=== PATIENT | female | born 1945 | race Caucasian/White ===

== ENCOUNTER 2020-05-27 14:30 | Day surgery (SDC) | payer MEDICARE | END 2020-05-27 16:06 | disposition home or self-care (01) | LOC: WOUND CARE 14:30 | PROVIDERS: ATTEND Nurse Practitioner | DX: T81.89XA Other complications of procedures, not elsewhere classified, initial encounter (principal); L98.492 Non-pressure chronic ulcer of skin of other sites with fat layer exposed; E78.5 Hyperlipidemia, unspecified; I10 Essential (primary) hypertension; I25.2 Old myocardial infarction; M19.90 Unspecified osteoarthritis, unspecified site; M10.9 Gout, unspecified; I25.10 Atherosclerotic heart disease of native coronary artery without angina pectoris; E66.9 Obesity, unspecified; I27.9 Pulmonary heart disease, unspecified; Z87.891 Personal history of nicotine dependence; Z68.27 Body mass index [BMI] 27.0-27.9, adult; Y83.8 Other surgical procedures as the cause of abnormal reaction of the patient, or of later complication, without mention of misadventure at the time of the procedure; Y92.238 Other place in hospital as the place of occurrence of the external cause | CPT/HCPCS: 97597; G0463 ==

== ENCOUNTER 2020-06-02 12:05 | Day surgery (SDC) | payer MEDICARE ==
[2020-06-02] MEDS ORDERED: LIDOcaine 2% 5ml jelly ONE (12:17)
== END 2020-06-02 13:58 | disposition home or self-care (01) ==
LOC: WOUND CARE 12:05
PROVIDERS: ATTEND Nurse Practitioner
DX: T81.89XD Other complications of procedures, not elsewhere classified, subsequent encounter (principal); L98.492 Non-pressure chronic ulcer of skin of other sites with fat layer exposed; E78.5 Hyperlipidemia, unspecified; I10 Essential (primary) hypertension; I25.2 Old myocardial infarction; M19.90 Unspecified osteoarthritis, unspecified site; M10.9 Gout, unspecified; I25.10 Atherosclerotic heart disease of native coronary artery without angina pectoris; E66.9 Obesity, unspecified; I27.9 Pulmonary heart disease, unspecified; Z87.891 Personal history of nicotine dependence; Z68.27 Body mass index [BMI] 27.0-27.9, adult; Y83.8 Other surgical procedures as the cause of abnormal reaction of the patient, or of later complication, without mention of misadventure at the time of the procedure
CPT/HCPCS: 97597

== ENCOUNTER 2020-06-18 12:00 | Outpatient (CLI) | payer MEDICARE | END 2020-06-18 13:05 | disposition home or self-care (01) | LOC: EDSTATUS 12:00 → WOUND CARE 12:00 | PROVIDERS: ATTEND Nurse Practitioner | DX: T81.89XD Other complications of procedures, not elsewhere classified, subsequent encounter (principal); L98.492 Non-pressure chronic ulcer of skin of other sites with fat layer exposed; E78.5 Hyperlipidemia, unspecified; I10 Essential (primary) hypertension; I25.2 Old myocardial infarction; M19.90 Unspecified osteoarthritis, unspecified site; M10.9 Gout, unspecified; I25.10 Atherosclerotic heart disease of native coronary artery without angina pectoris; E66.9 Obesity, unspecified; I27.9 Pulmonary heart disease, unspecified; Z87.891 Personal history of nicotine dependence; Z68.27 Body mass index [BMI] 27.0-27.9, adult; Y83.8 Other surgical procedures as the cause of abnormal reaction of the patient, or of later complication, without mention of misadventure at the time of the procedure | CPT/HCPCS: G0463 ==

== ENCOUNTER 2021-01-27 06:08 | Inpatient (IN) | payer MEDICARE, OTHER ==
[2021-01-22 11:05] LABS: CLARITY,URINE CLEAR (Clear); COLOR,URINE STRAW (Yellow); GLUCOSE, URINE NEGATIVE (Neg); KETONES,URINE NEGATIVE (Neg); LEUKOCYTE ESTERASE ,URINE NEGATIVE (Neg); NITRITES, URINE NEGATIVE (Neg); OCCULT BLOOD,URINE NEGATIVE (Neg); PROTEIN,URINE NEGATIVE (Neg); UROBILINOGEN,URINE 0.2 E.U/dL (0.2-1.0)
[2021-01-22 11:05] LABS: BASOPHILS # (AUTO) 0.1 X10'3 (0-0.2); BASOPHILS % (AUTO) 1.1 % (0-1); EOSINOPHILS # (AUTO) 0.4 X10'3 (0-0.9); EOSINOPHILS % (AUTO) 6.9 % (0-6); LYMPHOCYTES # (AUTO) 1.9 X10'3 (1.1-4.8); LYMPHOCYTES % (AUTO) 36.8 % (21-51); MEAN CORPUSCULAR HEMOGLOBIN 32.6 PG (27.0-31.0); MEAN CORPUSCULAR HGB CONC 33.2 g/dL (33.0-36.5); MEAN CORPUSCULAR VOLUME 98.1 FL (78-98); MEAN PLATELET VOLUME 8.5 FL (7.4-10.4); MONOCYTES # (AUTO) 0.6 X10'3 (0-0.9); MONOCYTES % (AUTO) 12.4 % (2-12); NEUTROPHILS # (AUTO) 2.2 X10'3 (1.8-7.7); NEUTROPHILS % (AUTO) 42.8 % (42-75); PRE OP HEMATOCRIT 38.2 % (35.0-45.0); PRE OP HEMOGLOBIN 12.7 g/dL (12.0-16.0); PRE OP PLATELET COUNT 212 X10'3 (140-440); RED CELL DISTRIBUTION WIDTH 13.4 % (11.5-14.5)
[2021-01-22 11:09] LABS: UA COLLECTION TYPE CLN CATCH MIDSTREAM
[2021-01-22 11:15] LABS: PRE OP INR 1.1 INR
[2021-01-22 11:31] LABS: ALBUMIN 3.9 G/DL (3.4-5.0); ALBUMIN/GLOBULIN RATIO 1.2 (1.1-1.5); ALKALINE PHOSPHATASE 59 IU/L (46-116); BLOOD UREA NITROGEN 27 MG/DL (7-18); BUN/CREATININE RATIO 22.5 (6.6-38.0); CALCIUM 9.4 MG/DL (8.5-10.1); CHLORIDE 107 MMOL/L (99-107); PRE OP ALT 20 U/L (30-65); PRE OP ANION GAP 6 (8-16); PRE OP AST 18 U/L (10-37); PRE OP BILIRUB, TOTAL 0.4 MG/DL (0.0-1.0); PRE OP GLUCOSE 88 MG/DL (70-104); PRE OP POTASSIUM 4.4 MMOL/L (3.4-5.1); PRE OP SODIUM 145 MMOL/L (135-145); TOTAL CARBON DIOXIDE 31.8 MMOL/L (24-32); TOTAL PROTEIN 7.1 G/DL (6.4-8.2); eGFR 44 ML/MIN
[~2021-01-27] VITALS: Ht 167.6 cm; Wt 83.9 kg
[2021-01-27] VITALS (18 sets, daily range): BP systolic 133–211; BP diastolic 60–96
[~2021-01-27 06:08] MED LIST: AMIO200T61 PO; APIX5TAB3 PO; ASPI81TA52 PO; ATOR20TA66 PO; CARV3.1246 PO; CHOL20004 PO; DOCU-22 PO; DOCUMENT DATE & TIME OF BETA-BLOCKER PO ONE; ESTR42.53 VG; ESTRACE CREAM TOP; ESZO3TAB44 PO; LEVO50TA8 PO; MATURE MULTI VITAMIN PO; RAW PROBIOTICS PO; TRAM50TA2 PO; VITAMIN D PO; [UNRECOGNIZED DRUG - OTHER] PO; ceFOXitin 2GM-NS 100mL ADDvant 100 ML IV ONE; famotidine 20mg tablet PO ONE; ringers solution, lacted 1,000 ML IV SCH
[2021-01-27] MEDS ORDERED: LIDOcaine 1% (10mg/ml) 2ml vial ONE (07:50)
[2021-01-27] MEDS ORDERED: ondansetron/PF 4mg/2ml inj IV PRN ×2 (07:55→11:10)
[2021-01-27] MEDS ORDERED: ringers solution, lacted 1,000 ML IV SCH (07:55)
[2021-01-27] MEDS ORDERED: morphine 4 MG/ML inj SYRINge IV PRN (07:55)
[2021-01-27] MEDS ORDERED: proCHLORperazine 10 MG/2 ml inj IV PRN (07:55)
[2021-01-27] MEDS ORDERED: morphine 2 MG/ML inj. syringe IV PRN (07:55)
[2021-01-27] MEDS ORDERED: meperidine/PF 25mg/ml syringe IV PRN ×3 (07:55)
[2021-01-27] MEDS ORDERED: midazolam 1 mg/ML 2ml injection ONE (08:15)
[2021-01-27] MEDS ORDERED: fentaNYL /PF 50mcg/ml 5ml ampule ONE (08:16)
[2021-01-27] MEDS ORDERED: dexamethasone sod phosphate 10mg/ml inj ONE (08:22)
[2021-01-27] MEDS ORDERED: glycopyrrolate 0.2mg/ml inj ONE (08:22)
[2021-01-27] MEDS ORDERED: sevoflurane 250ml liquid IH ONE (08:22)
[2021-01-27] MEDS ORDERED: neostigmine methylsulfate 1 MG/ML 10ml vial ONE (08:22)
[2021-01-27] MEDS ORDERED: LIDOcaine 2% (20mg/ml) 5ml vial ONE (08:40)
[2021-01-27] MEDS ORDERED: propofol inj 20 ML IV ONE (08:40)
[2021-01-27] MEDS ORDERED: rocuronium 10mg/ml inj IV ONE (08:40)
[2021-01-27] MEDS ORDERED: ondansetron/PF 4mg/2ml inj ONE (08:42)
[2021-01-27] MEDS ORDERED: BUPIVAcaine 0.5% inj/PF 30 ML ONE (10:30)
[2021-01-27] MEDS ORDERED: BUPIVACAINE liposomal/PF 13.3 MG/ML vial IM ONE ×2 (10:31→10:39)
[2021-01-27] MEDS ORDERED: acetaminophen 1,000mg/100ml IV 100 ML IV ONE (10:42)
[2021-01-27] MEDS ORDERED: CADD PCA waste documentation MC PRN (11:10)
[2021-01-27] MEDS ORDERED: HYDROmorphone/NS 1 mg/ml CADD 50 ML IV SCH (11:10)
[2021-01-27] MEDS ORDERED: naloxone 0.4 mg/ml inj IV PRN (11:10)
[2021-01-27] MEDS ORDERED: HYDROmorph./NS 0.2 mg/ml CADD 100 ML IV SCH (11:18)
--- NOTE | 2021-01-27 11:35 | NUR ---
Received from OR via gurney, accompanied by Anesthesiologist and report given by Anesthesiologist. PATIENT WAKING UP, NO S/S OF PAIN, V/S WNL, SCD ON, 20G TO LUE,WV TO ABDOMEN CDI, NO LEAKS DETECTED. 125 CONTINOUS SUCTION., F/C DRAINING CLEAR YELLOW URINE
--- NOTE | 2021-01-27 11:58 | NUR ---
Patient in room PAS IN 900. I have received report from JULIO Castellon and had the opportunity to ask questions . Pt to be held in recovery untill Vinicio CARTAGENAD available aprox 30 min.
[2021-01-27] MEDS: HYDROmorphone/NS 1 mg/ml CADD 50 ML IV SCH ×7 (12:08→23:00)
--- NOTE | 2021-01-27 12:30 | NUR ---
Pt arrived via bed from recovery, pt very painful painful. Instructed pt and spouse on Cadd use. Spouse verbalizes understanding of not push cadd button for his to avoid complications. Bed low, call light in reach, VSS though BP slightly elevated. will monitor pain management and BP.
--- NOTE | 2021-01-27 12:35 | NUR ---
PATIENT AWAKE AND ORIENTED, C/O PAIN-STITCHING MACHINE SETTER STARTED AND ENCOURAGED TO BE USED AND BOLUS DOSE GIVEN MULTIPLE TIMES DUE TO C/O PAIN WHICH IS INTERMITTENT, V/S WNL, SCD ON, 20G TO LUE,WV TO ABDOMEN CDI, NO LEAKS DETECTED. 125 CONTINOUS SUCTION., F/C DRAINING CLEAR YELLOW URINE. PATIENT TAKEN TO SURGICAL WITH ALL BELONGINGS AND REPORT GIVEN TO RN WHO HAS TAKEN OVER PATIENT CARE.
[2021-01-27] MEDS: potassium CL 20mEq in D5-1/2NS 1,000 ML IV SCH ×2 (12:51→21:07)
--- NOTE | 2021-01-27 14:45 | NUR ---
Paged Dr Coronado as pt remains Hypertensive 211/ and very painful. Increased Cadd to 0.3 per order. Pt reports she took all of her BP meds pre-op. Will continue to try to reach Surgeon or anesthesia.
[2021-01-27] MEDS ORDERED: ketorolac tromethamine 15mg/ml inj. IV ONE (14:55)
[2021-01-27] MEDS ORDERED: LORazepam 2 mg/ml vial IV ONE (14:55)
[2021-01-27] MEDS: piperacillin/tazo 3.375gm/50ml 50 ML IV SCH (16:27)
[2021-01-27] MEDS ORDERED: ESTRACE TOP SCH (18:05)
[2021-01-27] MEDS ORDERED: traMADol 50MG tablet PO PRN (18:05)
--- NOTE | 2021-01-27 18:36 | NUR ---
Problems reprioritized. Patient report given, questions answered & plan of care reviewed with JULIO Lim.
--- NOTE | 2021-01-27 19:07 | NUR ---
Patient in room [facility] 347. I have received report from Kirti KIM and had the opportunity to ask questions and assume patient care.
[2021-01-27] MEDS: docusate sod 100mg capsule PO SCH (20:05)
[2021-01-27] MEDS: carVEDilol 3.125mg tablet PO SCH (20:05)
[2021-01-27] MEDS: atorvastatin 20mg tablet PO SCH (20:06)
--- NOTE | 2021-01-27 22:56 | NUR ---
Student documentation: I have reviewed all interventions, assessments performed and documented by Aleida Barbosa. Student Medication Administration: For this medication-pass time frame, all medication were reviewed, dispensed, administered and documented per hospital policy by Aleida Barbosa.
[2021-01-28] MEDS: HYDROmorphone/NS 1 mg/ml CADD 50 ML IV SCH ×12 (01:00→23:00)
[2021-01-28] MEDS: piperacillin/tazo 3.375gm/50ml 50 ML IV SCH ×3 (01:10→16:33)
[2021-01-28] MEDS: potassium CL 20mEq in D5-1/2NS 1,000 ML IV SCH ×3 (04:48→20:23)
--- NOTE | 2021-01-28 06:21 | NUR ---
Problems reprioritized. Patient report given, questions answered & plan of care reviewed with Kirti KIM.
[2021-01-28 08:00] VITALS: BP 163/61
[2021-01-28] MEDS ORDERED: [UNRECOGNIZED DRUG - OTHER] PO SCH (08:00)
[2021-01-28] MEDS ORDERED: VITAMIN D 2000 UNIT PO SCH (08:00)
[2021-01-28] MEDS ORDERED: RAW PROBIOTICS PO SCH (08:00)
[2021-01-28] MEDS: docusate sod 100mg capsule PO SCH ×2 (08:42→20:24)
[2021-01-28] MEDS: cholecalciferol (vitamin D3) 1,000 unit (25mcg) tablet PO SCH (08:42)
[2021-01-28] MEDS: levoTHYROXINE 25mcg tablet PO SCH (08:42)
[2021-01-28] MEDS: aspirin 81mg tablet.DR PO SCH (08:42)
[2021-01-28] MEDS: amiodarone 200mg tablet PO SCH (08:42)
[2021-01-28] MEDS: multivitamins, therapeutics tablet PO SCH (08:42)
[2021-01-28] MEDS: carVEDilol 3.125mg tablet PO SCH ×2 (08:43→20:23)
[2021-01-28 12:00] VITALS: BP 136/59
[2021-01-28] MEDS ORDERED: ondansetron 4mg rapidly disintigrating tab PO PRN (15:40)
--- NOTE | 2021-01-28 18:38 | NUR ---
Problems reprioritized. Patient report given, questions answered & plan of care reviewed with JULIO De Guzman.
[2021-01-28 19:00] VITALS: BP 146/66
[2021-01-28] MEDS: estrogens, conjug. vaginal cream 45gm tube VG SCH (20:23)
[2021-01-28] MEDS: enoxaparin 40mg/0.4ml syringe SUBCUT SCH (20:23)
[2021-01-28] MEDS: atorvastatin 20mg tablet PO SCH (20:24)
[2021-01-28] MEDS: ketorolac tromethamine 15mg/ml inj. IV PRN (22:23)
[2021-01-29] VITALS: BP 153/74
[2021-01-29] MEDS: piperacillin/tazo 3.375gm/50ml 50 ML IV SCH ×4 (00:22→23:37)
[2021-01-29] MEDS: HYDROmorphone/NS 1 mg/ml CADD 50 ML IV SCH ×12 (01:00→23:00)
[2021-01-29] MEDS: potassium CL 20mEq in D5-1/2NS 1,000 ML IV SCH ×3 (03:54→19:23)
[2021-01-29] MEDS: amiodarone 200mg tablet PO SCH (07:45)
[2021-01-29] MEDS: levoTHYROXINE 25mcg tablet PO SCH (07:45)
[2021-01-29] MEDS: cholecalciferol (vitamin D3) 1,000 unit (25mcg) tablet PO SCH (07:45)
[2021-01-29] MEDS: aspirin 81mg tablet.DR PO SCH (07:45)
[2021-01-29] MEDS: multivitamins, therapeutics tablet PO SCH (07:45)
[2021-01-29] MEDS: docusate sod 100mg capsule PO SCH ×2 (07:45→19:21)
[2021-01-29] MEDS: carVEDilol 3.125mg tablet PO SCH ×2 (07:45→19:21)
[2021-01-29 07:47] VITALS: BP 168/77
[2021-01-29] MEDS: ketorolac tromethamine 15mg/ml inj. IV PRN (08:47)
[2021-01-29 08:58] LABS: BASOPHILS % (AUTO) 0.4 % (0-1); EOSINOPHILS # (AUTO) 0.2 X10'3 (0-0.9); EOSINOPHILS % (AUTO) 2.8 % (0-6); HEMATOCRIT 33.9 % (35.0-45.0); HEMOGLOBIN 11.3 g/dl (12.0-16.0); LYMPHOCYTES # (AUTO) 1.2 X10'3 (1.1-4.8); LYMPHOCYTES % (AUTO) 15.1 % (21-51); MEAN CORPUSCULAR HEMOGLOBIN 32.7 PG (27.0-31.0); MEAN CORPUSCULAR HGB CONC 33.4 g/dL (33.0-36.5); MEAN PLATELET VOLUME 8.3 FL (7.4-10.4); MONOCYTES # (AUTO) 0.7 X10'3 (0-0.9); MONOCYTES % (AUTO) 8.9 % (2-12); NEUTROPHILS # (AUTO) 5.6 X10'3 (1.8-7.7); NEUTROPHILS % (AUTO) 72.8 % (42-75); PLATELET COUNT 165 X10'3 (140-440); RED BLOOD COUNT 3.46 X10'6 (4.20-5.60); RED CELL DISTRIBUTION WIDTH 13.7 % (11.5-14.5); WHITE BLOOD COUNT 7.7 X10'3 (4.5-11.0)
[2021-01-29 09:08] LABS: ALANINE AMINOTRANSFERASE 45 U/L (12-78); ALKALINE PHOSPHATASE 67 IU/L (46-116); ANION GAP 7 (8-16); ASPARTATE AMINO TRANSFERASE 47 U/L (10-37); BILIRUBIN,TOTAL 0.7 MG/DL (0.1-1.0); BLOOD UREA NITROGEN 13 MG/DL (7-18); BUN/CREATININE RATIO 10.2 (6.6-38.0); CALCIUM 8.4 MG/DL (8.5-10.1); CHLORIDE 106 MMOL/L (99-107); CREATININE 1.28 MG/DL (0.40-0.90); GLUCOSE 127 MG/DL (70-104); POTASSIUM 4.6 MMOL/L (3.5-5.1); SODIUM 140 MMOL/L (135-145); TOTAL CARBON DIOXIDE 26.6 MMOL/L (24-32); TOTAL PROTEIN 5.9 G/DL (6.4-8.2); eGFR 40 ML/MIN
[2021-01-29 11:00] VITALS: BP 102/57
[2021-01-29 18:00] VITALS: BP 163/76
[2021-01-29] MEDS: lactobacillus rhamnosus 10,000 MMU CELLS/CAPSULE PO SCH (19:21)
[2021-01-29] MEDS: atorvastatin 20mg tablet PO SCH (19:21)
[2021-01-29] MEDS: enoxaparin 40mg/0.4ml syringe SUBCUT SCH (19:21)
[2021-01-30] VITALS: BP 144/67
[2021-01-30] MEDS: HYDROmorphone/NS 1 mg/ml CADD 50 ML IV SCH ×12 (01:00→23:00)
[2021-01-30] MEDS: potassium CL 20mEq in D5-1/2NS 1,000 ML IV SCH ×2 (03:04→16:13)
--- NOTE | 2021-01-30 06:53 | NUR ---
Patient in room [facility] 347. I have received report from Gege KIM and had the opportunity to ask questions and assume patient care.
[2021-01-30 07:01] VITALS: BP 173/73
[2021-01-30] MEDS: lactobacillus rhamnosus 10,000 MMU CELLS/CAPSULE PO SCH ×2 (07:14→19:44)
[2021-01-30] MEDS: levoTHYROXINE 25mcg tablet PO SCH (07:14)
[2021-01-30] MEDS: piperacillin/tazo 3.375gm/50ml 50 ML IV SCH ×2 (07:14→16:09)
[2021-01-30] MEDS: docusate sod 100mg capsule PO SCH ×2 (07:14→19:44)
[2021-01-30] MEDS: multivitamins, therapeutics tablet PO SCH (07:15)
[2021-01-30] MEDS: carVEDilol 3.125mg tablet PO SCH ×2 (07:15→19:44)
[2021-01-30] MEDS: aspirin 81mg tablet.DR PO SCH (07:15)
[2021-01-30] MEDS: cholecalciferol (vitamin D3) 1,000 unit (25mcg) tablet PO SCH (07:15)
[2021-01-30] MEDS: amiodarone 200mg tablet PO SCH (07:15)
[2021-01-30] MEDS: apixaban 5mg tablet PO SCH ×2 (08:54→19:44)
[2021-01-30 11:00] VITALS: BP 130/57
--- NOTE | 2021-01-30 18:57 | NUR ---
Patient in room [facility] 347. I have received report from PRANAV KIM and PATIENT READY FOR DISCHARGE, DISCHARGE INSTRUCTIONS GIVEN BY SHERRI NURSE PRANAV KIM, DISCHARGE PAPER SIGNED AND DAUGHTER HERE TO PICK HER UP, LEFT IN A WHEEL CHAIR WITH STAFF TO THE FRONT DOOR. Addendum: 01/30/21 at 2108 by Rosa Pierre RN WRONG ENTRY, WRONG PATIENT.
--- NOTE | 2021-01-30 18:58 | NUR ---
Patient in room [facility] 347. I have received report from ОЛЕГ KIM and had the opportunity to ask questions and assume patient care.
[2021-01-30 19:00] VITALS: BP 173/84
[2021-01-30] MEDS: atorvastatin 20mg tablet PO SCH (19:53)
[2021-01-30] MEDS: estrogens, conjug. vaginal cream 45gm tube VG SCH ×2 (19:54→19:57)
[2021-01-30] MEDS: micafungin inj 100 MG in normal saline 100ml IV soln 100 ML IV SCH (20:23)
[2021-01-30] MEDS: zolpidem 5mg tablet PO PRN (22:18)
[2021-01-31] VITALS: BP 164/62
[2021-01-31] MEDS: piperacillin/tazo 3.375gm/50ml 50 ML IV SCH ×3 (00:29→15:59)
[2021-01-31] MEDS: HYDROmorphone/NS 1 mg/ml CADD 50 ML IV SCH ×3 (01:00→05:00)
--- NOTE | 2021-01-31 06:09 | NUR ---
Problems reprioritized. Patient report given, questions answered & plan of care reviewed with ОЛЕГ KIM.
--- NOTE | 2021-01-31 06:19 | NUR ---
Patient in room [facility] 347. I have received report from Maya KIM and had the opportunity to ask questions and assume patient care.
[2021-01-31 07:23] VITALS: BP 165/75
[2021-01-31] MEDS: amiodarone 200mg tablet PO SCH (07:51)
[2021-01-31] MEDS: levoTHYROXINE 25mcg tablet PO SCH (07:51)
[2021-01-31] MEDS: lactobacillus rhamnosus 10,000 MMU CELLS/CAPSULE PO SCH ×2 (07:51→19:57)
[2021-01-31] MEDS: docusate sod 100mg capsule PO SCH ×2 (07:51→19:57)
[2021-01-31] MEDS: cholecalciferol (vitamin D3) 1,000 unit (25mcg) tablet PO SCH (07:51)
[2021-01-31] MEDS: aspirin 81mg tablet.DR PO SCH (07:51)
[2021-01-31] MEDS: multivitamins, therapeutics tablet PO SCH (07:52)
[2021-01-31] MEDS: apixaban 5mg tablet PO SCH ×2 (07:52→19:57)
[2021-01-31] MEDS: carVEDilol 3.125mg tablet PO SCH ×2 (07:52→19:57)
[2021-01-31] MEDS: micafungin inj 100 MG in normal saline 100ml IV soln 100 ML IV SCH (07:54)
[2021-01-31] MEDS: oxyCODONE/APAP 10/325mg tablet PO PRN ×4 (09:05→21:26)
[2021-01-31 11:34] VITALS: BP 137/65
--- NOTE | 2021-01-31 14:57 | NUR ---
Initial: Pt admit s/p Colostomy reversal, open lysis of adhesions, correction of multiple abdominal hernias, and drainage of retroperitoneal abscess per MD note. Pt advanced to regular diet yesterday w/ PO mostly 75% avg clear/full liquid meals prior. PO 25-50% recent two meals though LBM 5/12; constipation likely impacting PO. Receiving routine colace per EMR; will send power [employer] for additional bowel assistance. Dietary notified. ROCCO recommends Ant shake BIDLD for wound healing post-op; MD notified. Will continue to monitor for additional protein/kcal needs post-op. Rec: 1. continue regular diet; consider low-residue given recent GI surgery 2. Ant shake BIDLD for wound healing; pending MD verification in EMR 3. routine bowel care 4. weekly wts Addendum: 01/31/21 at [address] Amended: Links added.
[2021-01-31] MEDS: JUVEN Shake w/Arg/Glut/Ca2+Bmb (Juven 19.3gm) pkt 240ml PO SCH (17:30)
[2021-01-31 18:40] VITALS: BP 138/66
[2021-01-31] MEDS: atorvastatin 20mg tablet PO SCH (20:00)
[2021-01-31] MEDS: zolpidem 5mg tablet PO PRN (21:25)
[2021-01-31] MEDS: potassium CL 20mEq in D5-1/2NS 1,000 ML IV SCH (21:30)
[2021-02-01] VITALS: BP 144/56
[2021-02-01] MEDS: oxyCODONE/APAP 10/325mg tablet PO PRN ×5 (02:57→22:01)
--- NOTE | 2021-02-01 06:39 | NUR ---
Patient in room [facility] 347. I have received report from Avinash KIM and had the opportunity to ask questions and assume patient care.
--- NOTE | 2021-02-01 06:41 | NUR ---
Problems reprioritized. Patient report given, questions answered & plan of care reviewed with SANDY. Addendum: 02/01/21 at 0641 by Kolton Vidal RN Amended: Links added.
[2021-02-01 07:00] VITALS: BP 161/77
[2021-02-01] MEDS: cholecalciferol (vitamin D3) 1,000 unit (25mcg) tablet PO SCH (07:21)
[2021-02-01] MEDS: amiodarone 200mg tablet PO SCH (07:21)
[2021-02-01] MEDS: apixaban 5mg tablet PO SCH ×2 (07:21→19:49)
[2021-02-01] MEDS: aspirin 81mg tablet.DR PO SCH (07:21)
[2021-02-01] MEDS: docusate sod 100mg capsule PO SCH ×2 (07:22→19:49)
[2021-02-01] MEDS: lactobacillus rhamnosus 10,000 MMU CELLS/CAPSULE PO SCH ×2 (07:22→19:49)
[2021-02-01] MEDS: levoTHYROXINE 25mcg tablet PO SCH (07:22)
[2021-02-01] MEDS: multivitamins, therapeutics tablet PO SCH (07:22)
[2021-02-01] MEDS: carVEDilol 3.125mg tablet PO SCH ×2 (07:22→19:49)
[2021-02-01] MEDS: piperacillin/tazo 3.375gm/50ml 50 ML IV SCH ×4 (07:23→23:44)
[2021-02-01] MEDS: micafungin inj 100 MG in normal saline 100ml IV soln 100 ML IV SCH (07:23)
[2021-02-01] MEDS: HYDROmorphone inj. 0.5 MG/0.5 ML DISP.SYRIN IV PRN ×2 (09:47→20:26)
[2021-02-01 11:00] VITALS: BP 159/71
[2021-02-01] MEDS: JUVEN Shake w/Arg/Glut/Ca2+Bmb (Juven 19.3gm) pkt 240ml PO SCH ×2 (12:30→17:30)
--- NOTE | 2021-02-01 18:09 | NUR ---
Problems reprioritized. Patient report given, questions answered & plan of care reviewed with Avinash KIM.
[2021-02-01 19:48] VITALS: BP 141/56
[2021-02-01] MEDS: atorvastatin 20mg tablet PO SCH (19:51)
[2021-02-01] MEDS: zolpidem 5mg tablet PO PRN (21:59)
[2021-02-02] VITALS: BP 138/74
[2021-02-02] MEDS: oxyCODONE/APAP 10/325mg tablet PO PRN ×3 (02:38→12:17)
[2021-02-02] MEDS: potassium CL 20mEq in D5-1/2NS 1,000 ML IV SCH (03:25)
--- NOTE | 2021-02-02 06:22 | NUR ---
Problems reprioritized. Patient report given, questions answered & plan of care reviewed with SANDY. Addendum: 02/02/21 at 0622 by Kolton Vidal RN Amended: Links added.
--- NOTE | 2021-02-02 06:33 | NUR ---
Patient in room [facility] 347. I have received report from Avinash KIM and had the opportunity to ask questions and assume patient care.
[2021-02-02 07:00] VITALS: BP 170/72
[2021-02-02] MEDS: levoTHYROXINE 25mcg tablet PO SCH (07:04)
[2021-02-02] MEDS: cholecalciferol (vitamin D3) 1,000 unit (25mcg) tablet PO SCH (07:04)
[2021-02-02] MEDS: aspirin 81mg tablet.DR PO SCH (07:04)
[2021-02-02] MEDS: lactobacillus rhamnosus 10,000 MMU CELLS/CAPSULE PO SCH (07:04)
[2021-02-02] MEDS: multivitamins, therapeutics tablet PO SCH (07:04)
[2021-02-02] MEDS: amiodarone 200mg tablet PO SCH (07:04)
[2021-02-02] MEDS: piperacillin/tazo 3.375gm/50ml 50 ML IV SCH (07:05)
[2021-02-02] MEDS: docusate sod 100mg capsule PO SCH (07:06)
[2021-02-02] MEDS: micafungin inj 100 MG in normal saline 100ml IV soln 100 ML IV SCH (07:06)
[2021-02-02] MEDS: apixaban 5mg tablet PO SCH (07:06)
[2021-02-02] MEDS: carVEDilol 3.125mg tablet PO SCH (07:07)
[2021-02-02 11:00] VITALS: BP 114/51
[2021-02-02] MEDS: JUVEN Shake w/Arg/Glut/Ca2+Bmb (Juven 19.3gm) pkt 240ml PO SCH (12:30)
[2021-02-02] MEDS ORDERED: oxyCODONE/APAP 5-325mg tablet PO ONE (15:20)
[2021-02-02] MEDS: HYDROmorphone inj. 0.5 MG/0.5 ML DISP.SYRIN IV PRN (15:27)
--- NOTE | 2021-02-02 16:30 | NUR ---
Patient's home wound vac was set up and she was educated on how to use. She was educated on worsening symptoms, follow up care at [facility] for infusion, [facility] wound care, and home health services, diet, and medications. IV was removed and canula intact. Patient stated she had all belonging and was taken down by PCT.
--- NOTE | 2021-02-02 16:35 | NUR ---
Wound care pictures were not taken because a wound vac was in place.
--- NOTE | 2021-02-04 13:02 | NUR ---
CASE MANAGEMENT DISCHARGE FOLLOW UP: T/c to pt, no answer, left message requesting callback. Addendum: 02/04/21 at 1359 by Taniya Saenz RN [id number] Received return call from patient. Reports that she is feeling better, wound is tender/itching, improved appetite, had BM; denies CP, SOB, fever/chills, s/sx of infection, bleeding, incontinence. Verbalizes understanding of s/sx requiring further evaluation/emergent assistance. Verbalizes understanding of medications, verbalizes understanding that she needs to go to [facility]'s infusion clinic daily until abx completed. Verbalizes compliance with MD discharge instructions. Verbalizes understanding of the importance in making/keeping follow-up appointments, went to wound care appointment this morning at [facility]'s wound care clinic. Upon inquiry, states that she has not heard from HHS agency, has phone number for [facility] [employer], states that she will give them a call if she does not hear from them. Pt states that she slept well during her hospitalization and that the nurses were really just nice and helpful. Per pt, if she used her call light, someone answered within 2-3 minutes, sometimes sooner, states she was really impressed. States no further questions/concerns at this time.
== END 2021-02-02 16:26 | disposition home health service (06) | DRG 329 ==
LOC: PAS IN 06:08 → UNDOADMIN 06:08 → PAS IN 11:06 → SUR 3N 12:30 → PAS IN 12:30 → SUR 3N 01-29 13:51
PROVIDERS: ADMIT Surgery; ATTEND Surgery
PROC: 0DQN0ZZ Repair Sigmoid Colon, Open Approach (ICD-10-PCS; 2021-01-27)
PROC: 0WQF0ZZ Repair Abdominal Wall, Open Approach (ICD-10-PCS; 2021-01-27)
PROC: 3E0T3BZ Introduction of Anesthetic Agent into Peripheral Nerves and Plexi, Percutaneous Approach (ICD-10-PCS; 2021-01-27)
PROC: 3E0T33Z Introduction of Anti-inflammatory into Peripheral Nerves and Plexi, Percutaneous Approach (ICD-10-PCS; 2021-01-27)
PROC: 0DNW0ZZ Release Peritoneum, Open Approach (ICD-10-PCS; principal; 2021-01-27 08:22)
PROC: 02HV33Z Insertion of Infusion Device into Superior Vena Cava, Percutaneous Approach (ICD-10-PCS; 2021-02-02)
PROC: B548ZZA Ultrasonography of Superior Vena Cava, Guidance (ICD-10-PCS; 2021-02-02)
DX: Z43.3 Encounter for attention to colostomy (principal); K68.19 Other retroperitoneal abscess; N17.9 Acute kidney failure, unspecified; E03.9 Hypothyroidism, unspecified; K43.9 Ventral hernia without obstruction or gangrene; X58.XXXA Exposure to other specified factors, initial encounter; G89.29 Other chronic pain; K66.0 Peritoneal adhesions (postprocedural) (postinfection); M54.9 Dorsalgia, unspecified; I10 Essential (primary) hypertension; Z82.49 Family history of ischemic heart disease and other diseases of the circulatory system; Z86.718 Personal history of other venous thrombosis and embolism; Y93.89 Activity, other specified; Y92.89 Other specified places as the place of occurrence of the external cause; Y99.8 Other external cause status
CPT/HCPCS: 36415; 71046; 80053; 81003; 82948; 84443; 85025; 85610; 85730; 86885; 86900; 86901; 87070; 87075; 87077; 87081; 93005; A4618; A6550; A7000; C1758; C9290; G0378; J0131; J0694; J1100; J1170; J1650; J1885; J2001; J2060; J2175; J2248; J2250; J2270; J2405; J2543; J2704; J2710; J3010; J3480; J3490; J7120

== ENCOUNTER → 2021-02-17 | Day surgery (SDC) | payer MEDICARE, OTHER ==
[~2021-02-17] VITALS: Ht 167.6 cm; Wt 82.0 kg
[~2021-02-17] MED LIST changes: +LIDOcaine 2% (20mg/ml) 5ml vial ONE; +acetaminophen 1,000mg/100ml IV 100 ML IV ONE; +ceFAZolin 2gm in dextrose, iso 50 ML IV ONE; -ceFOXitin 2GM-NS 100mL ADDvant 100 ML IV ONE; +dexamethasone sod phosphate 10mg/ml inj ONE; +fentaNYL/PF 50MCG/1 ML 2ML syringe ONE; +meperidine/PF 25mg/ml syringe IV PRN; +midazolam 1 mg/ML 2ml injection ONE; +morphine 2 MG/ML inj. syringe IV PRN; +morphine 4 MG/ML inj SYRINge IV PRN; +ondansetron/PF 4mg/2ml inj IV PRN; +ondansetron/PF 4mg/2ml inj ONE; +proCHLORperazine 10 MG/2 ml inj IV PRN; +propofol inj 20 ML IV ONE; +sevoflurane 250ml liquid IH ONE
[2021-02-17 13:18] VITALS: BP 147/92
[2021-02-17 17:10] VITALS: BP 159/81
--- NOTE | 2021-02-17 17:10 | NUR ---
PT ARRIVED TO OR VIA SERA WITH DR GARCÍA-REPORT GIVEN, PT AWAKE, VSS, DENIES PAIN, ISLAND DRSG TO ABD-CDI, PICC LINE TO RIGHT UE-LR RUNNING, SCDS IN PLACE
[2021-02-17 17:20] VITALS: BP 152/79
[2021-02-17 17:30] VITALS: BP 155/76
[2021-02-17 17:40] VITALS: BP 164/77
--- NOTE | 2021-02-17 17:40 | NUR ---
PT DRESSED, VSS, DENIES PAIN, ISLAND DSRG-CDI, PICC LINE IN PLACE TO RIGHT UE-FLUSHED, D/C INSTURCTIONS GIVEN TO PT, TAKEN WITH BELONGINGS TO CAR, WAITING, PAIN PILLS ALREADY PICKED UP BY
== END | disposition home or self-care (01) ==
LOC: PAS 12:10
PROVIDERS: ATTEND Surgery
DX: T81.89XA Other complications of procedures, not elsewhere classified, initial encounter (principal); I10 Essential (primary) hypertension; E78.5 Hyperlipidemia, unspecified; I25.2 Old myocardial infarction; M10.9 Gout, unspecified; E03.9 Hypothyroidism, unspecified; E66.9 Obesity, unspecified; Z68.28 Body mass index [BMI] 28.0-28.9, adult; M19.90 Unspecified osteoarthritis, unspecified site; Z98.890 Other specified postprocedural states; Z90.49 Acquired absence of other specified parts of digestive tract; Z96.659 Presence of unspecified artificial knee joint; Z86.12 Personal history of poliomyelitis; Z87.891 Personal history of nicotine dependence; Y83.8 Other surgical procedures as the cause of abnormal reaction of the patient, or of later complication, without mention of misadventure at the time of the procedure; Y92.89 Other specified places as the place of occurrence of the external cause
CPT/HCPCS: 13160; 82948; J0131; J1100; J2001; J2250; J2405; J2704; J3010; A4618; A6258; A7000; J7120

== ENCOUNTER 2022-10-10 09:58 | Day surgery (SDC) | payer MEDICARE ==
[2022-10-10] VITALS (12 sets, daily range): BP systolic 140–186; BP diastolic 54–82
[~2022-10-10] VITALS: Ht 167.6 cm; Wt 88.5 kg
[~2022-10-10 09:58] MED LIST changes: -DOCUMENT DATE & TIME OF BETA-BLOCKER PO ONE; -LIDOcaine 2% (20mg/ml) 5ml vial ONE; -acetaminophen 1,000mg/100ml IV 100 ML IV ONE; -ceFAZolin 2gm in dextrose, iso 50 ML IV ONE; -dexamethasone sod phosphate 10mg/ml inj ONE; -famotidine 20mg tablet PO ONE; -fentaNYL/PF 50MCG/1 ML 2ML syringe ONE; -meperidine/PF 25mg/ml syringe IV PRN; -midazolam 1 mg/ML 2ml injection ONE; -morphine 2 MG/ML inj. syringe IV PRN; -morphine 4 MG/ML inj SYRINge IV PRN; -ondansetron/PF 4mg/2ml inj IV PRN; -ondansetron/PF 4mg/2ml inj ONE; -proCHLORperazine 10 MG/2 ml inj IV PRN; -propofol inj 20 ML IV ONE; -ringers solution, lacted 1,000 ML IV SCH; -sevoflurane 250ml liquid IH ONE
[2022-10-10] MEDS ORDERED: normal saline 1,000 ML IV SCH (10:30)
[2022-10-10] MEDS ORDERED: LORazepam 0.5 MG tablet PO PRN (10:30)
[2022-10-10] MEDS ORDERED: diphenhydrAMINE 25mg capsule PO PRN (10:30)
[2022-10-10] MEDS ORDERED: LIDOcaine 1% (10mg/ml) 2ml vial ONE ×2 (10:39→14:37)
[2022-10-10 11:16] LABS: BASOPHILS # (AUTO) 0.1 X10'3 (0-0.2); BASOPHILS % (AUTO) 1.2 % (0-1); EOSINOPHILS # (AUTO) 0.2 X10'3 (0-0.9); EOSINOPHILS % (AUTO) 3.3 % (0-6); HEMATOCRIT 42.6 % (35.0-45.0); LYMPHOCYTES # (AUTO) 1.6 X10'3 (1.1-4.8); MEAN CORPUSCULAR HEMOGLOBIN 31.8 PG (27.0-31.0); MEAN CORPUSCULAR HGB CONC 32.9 g/dL (33.0-36.5); MEAN CORPUSCULAR VOLUME 96.8 FL (78-98); MEAN PLATELET VOLUME 7.9 FL (7.4-10.4); MONOCYTES # (AUTO) 0.6 X10'3 (0-0.9); MONOCYTES % (AUTO) 8.5 % (2-12); NEUTROPHILS # (AUTO) 4.1 X10'3 (1.8-7.7); PLATELET COUNT 231 X10'3 (140-440); RED CELL DISTRIBUTION WIDTH 13.7 % (11.5-14.5); WHITE BLOOD COUNT 6.5 X10'3 (4.5-11.0)
[2022-10-10] MEDS ORDERED: MELA5TAB12 PO (11:16)
[2022-10-10] MEDS ORDERED: calcium PO (11:16)
[2022-10-10] MEDS ORDERED: SACU1TAB PO (11:18)
[2022-10-10 11:29] LABS: APTT 21 SECONDS (22-32)
[2022-10-10 11:32] LABS: ANION GAP 8 (8-16); BLOOD UREA NITROGEN 18 MG/DL (7-18); BUN/CREATININE RATIO 14.8 (6.6-38.0); CALCIUM 9.2 MG/DL (8.5-10.1); CHLORIDE 103 MMOL/L (99-107); CREATININE 1.22 MG/DL (0.40-0.90); GLUCOSE 89 MG/DL (70-104); SODIUM 138 MMOL/L (135-145); TOTAL CARBON DIOXIDE 26.7 MMOL/L (24-32); eGFR 43 ML/MIN
[2022-10-10] MEDS ORDERED: midazolam 1 mg/ML 2ml injection ONE ×2 (14:36→15:26)
[2022-10-10] MEDS ORDERED: fentaNYL/PF 50MCG/1 ML 2ML syringe ONE (14:36)
[2022-10-10] MEDS ORDERED: nitroGLYCERIN-Tridil 50MG/D5W 250 ML IV ONE (14:36)
[2022-10-10] MEDS ORDERED: verapamil 2.5 mg/ml inj IV ONE (14:36)
[2022-10-10] MEDS ORDERED: heparin 1,000unit/ml 10ml vial 10 ML ONE (14:37)
[2022-10-10] MEDS ORDERED: iohexol 350MG/ML 100ml bottle IV ONE (14:37)
[2022-10-10] MEDS ORDERED: iohexol 350 MG/ML 50ML vial IV ONE (14:37)
[2022-10-10 15:52] LABS: ISTAT HGB ART 13.9 g/dl (12.0-16.0); ISTAT Hct ART 41 %PCV (35-45); ISTAT O2 SATURATION ARTERIAL 94 % (95-98); ISTAT SOURCE ART
[2022-10-11 06:32] LABS: ISTAT Hct MIX 41 %PCV (35-45); ISTAT O2 SATURATION MIX VENOUS 71 % (60-80); ISTAT SOURCE VEN
== END 2022-10-10 19:35 | disposition home or self-care (01) ==
LOC: SSTAY O 09:58
PROVIDERS: ATTEND Internal Medicine Cardiovascular Disease
DX: R94.39 Abnormal result of other cardiovascular function study (principal); I25.10 Atherosclerotic heart disease of native coronary artery without angina pectoris; I10 Essential (primary) hypertension; E78.5 Hyperlipidemia, unspecified; M19.90 Unspecified osteoarthritis, unspecified site; I48.0 Paroxysmal atrial fibrillation; I42.0 Dilated cardiomyopathy; I27.20 Pulmonary hypertension, unspecified; E66.3 Overweight; G89.4 Chronic pain syndrome; I08.1 Rheumatic disorders of both mitral and tricuspid valves; Z68.31 Body mass index [BMI] 31.0-31.9, adult; Z90.89 Acquired absence of other organs; Z98.890 Other specified postprocedural states; Z82.49 Family history of ischemic heart disease and other diseases of the circulatory system; Z81.8 Family history of other mental and behavioral disorders; Z82.0 Family history of epilepsy and other diseases of the nervous system; Z87.891 Personal history of nicotine dependence; Z96.653 Presence of artificial knee joint, bilateral; Z79.01 Long term (current) use of anticoagulants; Z79.82 Long term (current) use of aspirin; Z79.899 Other long term (current) drug therapy
CPT/HCPCS: 36415; 76937; 80048; 82803; 85014; 85025; 85610; 85730; 93005; 93306; 93460; 99152; 99153; A6258; C1751; C1769; C1894; J1644; J2250; J3010; J3490; J7030; Q0163; Q9967; A6402; C1725

== ENCOUNTER 2025-05-20 15:07 | Outpatient (CLI) | payer MEDICARE, OTHER ==
[~2025-05-20 15:07] MED LIST changes: -AMIO200T61 PO; +AMIO200T76 PO; +CALC600T26 PO; -ESTRACE CREAM TOP; -MATURE MULTI VITAMIN PO; +MELA5TAB12 PO; +MULT-1085 PO; +OXYC1TAB17 PO; +POLY119P2 PO; +SACU1TAB PO; -VITAMIN D PO
--- NOTE | 2025-05-21 05:19 | RADIOLOGY REPORT ---
PROCEDURE: MRI lumbar spine without contrast. INDICATION: RADICULOPATHY, LUMBAR REGION COMPARISON: None TECHNIQUE: MRI lumbar spine without intravenous contrast utilizing multiplanar, multisequence techni que. FINDINGS: There is grade 1 anterolisthesis at L3-L4 and L4-L5. There is mild L5 height loss which is likely chr onic. The vertebral body heights are otherwise maintained. There is Modic type 1 endplate changes at L1-L2. Marrow signal otherwise unremarkable. There is posterior instrumented fusion at L2-L5 with lyric ateral rods and screws as well as laminectomies. There are interbody prostheses at L1-L2 and L2-L3. Multilevel intervertebral disc space narrowing and desiccation throughout the non operative levels. T he conus medullaris is normal in signal characteristics and terminates at the T12-L1 level. Paraspina l muscles are unremarkable. At the T12-L1 level, there is no evidence of central spinal canal stenosis. Mild bilateral neural fo raminal stenosis. At the L1-L2 level, there is broad-based posterior disc bulge, ligamentum flavum thickening and facet hypertrophy. There is severe spinal stenosis. There is severe bilateral neural foraminal stenosis. At the L2-L3 level, there is no significant spinal stenosis. No significant neural foraminal stenosis . At the L3-L4 level, there is grade 1 anterolisthesis. No significant spinal stenosis. There is mild bilateral neural foraminal stenosis. At the L4-L5 level, there is grade 1 anterolisthesis. There is mild spinal stenosis. There is mild l eft and moderate to severe right neural foraminal stenosis. At the L5-S1 level, there is no evidence of central spinal canal stenosis. There is mild bilateral n eural foraminal stenosis. Other: None. IMPRESSION: 1. Multilevel postsurgical and degenerative changes in the lumbar spine. Severe bilateral neural fora yakov stenosis at L1-L2 and severe right neural foraminal stenosis is present at L4-L 2. No disc herniation or critical central spinal stenosis in the lumbar spine.
== END 2025-05-20 23:59 | disposition home or self-care (01) ==
LOC: MRI02 15:07
PROVIDERS: ATTEND Family Medicine
DX: M51.16 Intervertebral disc disorders with radiculopathy, lumbar region (principal); M47.26 Other spondylosis with radiculopathy, lumbar region; M48.061 Spinal stenosis, lumbar region without neurogenic claudication; M43.16 Spondylolisthesis, lumbar region
CPT/HCPCS: 72148

== ENCOUNTER 2025-05-21 13:38 | Outpatient (CLI) | payer MEDICARE ==
--- NOTE | 2025-05-21 14:45 | RADIOLOGY REPORT ---
Procedure: CT CT CHEST Reason for study/Clinical History: CHRONIC OBSTRUCTIVE PULMONARY DISEASE, UNSPECIFIED Comparison Study: None Exam Date: 05/21/2025 01:51 PM TECHNIQUE: Multidetector CT of the chest was performed from the lung apices to the upper abdomen with out the use of intravenous contract. Axial, coronal and sagittal multiplanar reformats were performed . Radiation Dose Information: CT Dose: CTDI volume is 25 mGy. Dose-length product is 250 mGy*cm The dose indicators for CT are the volume Computed Tomography (CT) Dose Index (CTDIvol) and the Dose Length Product (DLP), and are measured in units of mGy and mGy-cm, respectively. These indicators are not patient dose, but values generated from the CT scanner acquisition factors. The report includes radiation exposure data for exposures received during this examination. FINDINGS: Lower neck: Normal thyroid. Lungs: 5 mm nodule right middle lobe, image 56. Heart/Vascular Structures: Normal heart size. No pericardial effusion. Lymph Nodes: No adenopathy Pleura: No pleural effusion or significant pneumothorax. Musculoskeletal: No acute osseous abnormality. Soft tissues: Normal. Upper abdomen: Limited portions of the upper abdomen are unremarkable. IMPRESSION: 5 mm nodule right middle lobe, image 56. Lung-RADS Category 2: Continue annual screening with LDCT Radiation optimization: All CT scans at this facility use at least one of these dose optimization alivia hniques: automated exposure control mA and/or kV adjustment per patient size (includes targeted exam s where dose is matched to clinical indication) or iterative reconstruction.
== END 2025-05-21 23:59 | disposition home or self-care (01) ==
LOC: RAD 13:38
PROVIDERS: ATTEND Physician Assistant
DX: R91.1 Solitary pulmonary nodule (principal); J44.9 Chronic obstructive pulmonary disease, unspecified
CPT/HCPCS: 71250